=== PATIENT | male | born 1975 | race American Indian/Alaskan Native ===

== ENCOUNTER 2017-03-26 08:47 | Emergency (ER) | payer SELFPAY ==
[2017-03-26 09:39] LABS: Bilirubin,Urine NEG (Negative); Blood,Urine MOD (Negative); Ketones,Urine NEG (Negative); Leukocyte Esterase,Urine NEG (Negative); Mucus,Urine FEW /HPF; Nitrite,Urine NEG (Negative); Protein,Urine <15 mg/dL mg/dL (Negative)
--- NOTE | 2017-03-26 10:12 | Emergency Department Report ---
HPI - General Chief Complaint: Urogenital-Male Time Seen by Provider: 03/26/17 09:44 - HPI HPI: Patient is a 42-year-old male who presents to ED complaining of right flank pain that radiates all the way to his right testicle. She states this pain started 2 days ago. Patient denies any testicular swelling, penile lesions or discharge. Patient states he recollects eating a salad which prior to pain. He denies dysuria, bloody urine, trauma, chest pain or shortness of breath/ abdominal pain/diarrhea. ED Past Medical Hx - Past Medical History Previous Medical History?: No - Surgical History Past Surgical History?: No - Social History Smoking Status: Current Every Day Smoker Substance Use Type: Alcohol, Marijuana - Medications Home Medications: Home Medications Medication Instructions Recorded Confirmed Last Taken Type Acetaminophen/Codeine [Tylenol 1 tab PO Q6H PRN #10 tab 03/26/17 Unknown Rx /Codeine # 3 tab] Naproxen [Naprosyn] 500 mg PO BID #40 tablet 03/26/17 Unknown Rx ED Review of Systems ROS: Stated complaint: FLANK PAIN Other details as noted in HPI Constitutional: denies: chills, fever Eyes: denies: eye pain, eye discharge, vision change ENT: denies: ear pain, throat pain Respiratory: denies: cough, shortness of breath, wheezing Cardiovascular: denies: chest pain, palpitations Endocrine: no symptoms reported Gastrointestinal: denies: abdominal pain, nausea, diarrhea Genitourinary: denies: urgency, dysuria Musculoskeletal: denies: back pain, joint swelling, arthralgia Skin: denies: rash, lesions Neurological: denies: headache, weakness, paresthesias Psychiatric: denies: anxiety, depression Hematological/Lymphatic: denies: easy bleeding, easy bruising Physical Exam - Physical Exam Vital Signs: Vital Signs 03/26/17 08:54 Temperature 98.4 F Pulse Rate 64 Respiratory 22 Rate Blood Pressure 127/89 O2 Sat by Pulse 98 Oximetry Physical Exam: GENERAL: Alert and oriented x3, no apparent distress, Normal Gait, atraumatic. LUNGS: Symetrical with respiration, No wheezing, no rales or crackles, CTAB. HEART: S1, S2 present, regular rate and rhythm without murmur, no rubs, no gallops. Non tender to palpation ABDOMEN: No organomegaly was noted,Positive bowel sounds, soft, and non- distended. . Nontender to palpation on all Quadrants, NO CVA tenderness. BACK: Full range of motion, no spinal tenderness, nontender to palpation. UROGENITAL: No scrotal mass, Scrotum non tender to palpation bilaterally, no hernia, no scars or penile discharge. EXTREMITIES/MUSCULOSKELETAL: No cyanosis, clubbing, rash, lesions or edema. Full ROM bilaterally. UE/LE Pulses 2+ bilaterally. LE and UE 5+ strength bilaterally, straight leg raise negative bilaterally NEUROLOGIC: The patient is cooperative with no focal neurologic deficits. Cranial nerves II through XII are grossly intact. Normal speech. Normal sensation in bilateral upper and lower extremities, PSYCHIATRIC: Mood is congruent with affect, denies suicidal or homicidal ideations. SKIN: Warm and dry, No lesions, No ulceration or induration present. ED Course Vital Signs 03/26/17 08:54 Temperature 98.4 F Pulse Rate 64 Respiratory 22 Rate Blood Pressure 127/89 O2 Sat by Pulse 98 Oximetry ED Medical Decision Making - Radiology Data Radiology results: report reviewed, image reviewed cc: SAVANNAH LOPES CT ABDOMEN PELVIS WITHOUT CONTRAST: HISTORY: right abdominal pain, testicular pain. COMPARISON: none. TECHNIQUE: Helical CT in 1.25mm intervals without IV contrast. Sagittal and coronal reconstructions. FINDINGS: Lung bases: Normal. Liver: Normal. Biliary system: Normal. Pancreas: Normal. Spleen: Normal. Kidneys/ureters/bladder: The kidneys are normal size and position. A 3 mm stone is identified in the mid right kidney. No left nephrolithiasis. No cystic disease, mass or hydronephrosis. The ureters and bladder are unremarkable. The prostate gland is normal size. There is a 2 mm calcification in the central portions of the prostate gland. I suppose a stone in the prosthetic urethra could be considered. Correlate with the patient. Adrenal glands: Normal. Aorta: Normal. Intestines: Normal. Appendix: Normal. Ascites: None. Adenopathy: None. Musculoskeletal: Normal. IMPRESSION: Right nephrolithiasis, nonobstructing. Questionable 2 mm stone in the prosthetic urethra, see above. No acute inflammatory process is appreciated. Transcribed By: TTR Dictated By: ANGLE LORD JR, MD Electronically Authenticated By: ANGLE LORD JR, MD Signed Date/Time: 03/26/17 1138 - Medical Decision Making 8-3[age]old male presents with right kidney stone ED course: Patient received Motrin and ED CT scan of the abdomen and pelvis ordered. CT scan shows C reported above I discussed his findings with the patient. I discussed the patient stone is nonobstructing but stupid reason for pain. I discussed with the patient follow-up with primary care doctor. Vital signs are stable patient is in no acute distress Critical care attestation.: If time is entered above; I have spent that time in minutes in the direct care of this critically ill patient, excluding procedure time. ED Disposition Clinical Impression: Right kidney stone, Nephrolithiasis Disposition: TO HOME OR SELFCARE Is pt being admited?: No Does the pt Need Aspirin: No Condition: Stable Instructions: Kidney Stones (ED), How to Strain Your Urine (ED), Flank Pain (ED ) Additional Instructions: Make sure to follow up with the primary care physician as discussed. Take all your medications as you've been prescribed. If you have any worsening symptoms or develop new symptoms please return to ED immediately. Prescriptions: Acetaminophen/Codeine [Tylenol /Codeine # 3 tab] 1 tab PO Q6H PRN #10 tab PRN Reason: Pain Naproxen [Naprosyn] 500 mg PO BID #40 tablet Referrals: PRIMARY CAREMD [Primary Care Provider] - 3-5 Days ROMA VERGARA MD [Staff Physician] - 3-5 Days [facility] [Outside] - 3-5 Days [facility] [Outside] - 3-5 Days Forms: Accompanied Note, Work/School Release Form(ED) Time of Disposition: 12:04
[2017-03-26] MEDS ORDERED: MOTRIN PO ONE (10:25)
--- NOTE | 2017-03-26 11:43 | Cat Scan Report ---
CT ABDOMEN PELVIS WITHOUT CONTRAST: HISTORY: right abdominal pain, testicular pain. COMPARISON: none. TECHNIQUE: Helical CT in 1.25mm intervals without IV contrast. Sagittal and coronal reconstructions. FINDINGS: Lung bases: Normal. Liver: Normal. Biliary system: Normal. Pancreas: Normal. Spleen: Normal. Kidneys/ureters/bladder: The kidneys are normal size and position. A 3 mm stone is identified in the mid right kidney. No left nephrolithiasis. No cystic disease, mass or hydronephrosis. The ureters and bladder are unremarkable. The prostate gland is normal size. There is a 2 mm calcification in the central portions of the prostate gland. I suppose a stone in the prosthetic urethra could be considered. Correlate with the patient. Adrenal glands: Normal. Aorta: Normal. Intestines: Normal. Appendix: Normal. Ascites: None. Adenopathy: None. Musculoskeletal: Normal. IMPRESSION: Right nephrolithiasis, nonobstructing. Questionable 2 mm stone in the prosthetic urethra, see above. No acute inflammatory process is appreciated.
[2017-03-26 12:28] VITALS: BP 118/76
== END 2017-03-26 12:28 | disposition home or self-care (01) ==
LOC: ED 08:47
DX: N20.0 Calculus of kidney (principal); F17.200 Nicotine dependence, unspecified, uncomplicated; F12.10 Cannabis abuse, uncomplicated
CPT/HCPCS: 74176; 81001; 99284